=== PATIENT | female | born 1960 | race Caucasian/White ===

== ENCOUNTER 2019-03-12 12:30 | Day surgery (SDC) | payer OTHER ==
[2019-03-12] MEDS ORDERED: LIDOCAINE 4% SOLUTION 50 ML BTL (13:59)
[2019-03-12] MEDS ORDERED: FENTAnyl 50 MCG/ML VIAL (14:41)
[2019-03-12] MEDS ORDERED: MIDAZOLAM 1 MG/ML 2 ML INJ ×3 (14:41→14:42)
== END 2019-03-12 15:12 | disposition home or self-care (01) ==
LOC: GIL 12:30
DX: R19.4 Change in bowel habit (principal); K29.80 Duodenitis without bleeding; K57.30 Diverticulosis of large intestine without perforation or abscess without bleeding
CPT/HCPCS: 43239; 88305